=== PATIENT | female | born 1970 | race Caucasian/White ===

== ENCOUNTER → 2019-12-22 | Outpatient (CLI) | payer BC | END | disposition home or self-care (01) | LOC: LAB SHORT 11:59 → LAB 11:59 | DX: N83.8 Other noninflammatory disorders of ovary, fallopian tube and broad ligament (principal) | CPT/HCPCS: 86304 ==

== ENCOUNTER → 2020-01-30 | Outpatient (CLI) | payer BC | END | disposition home or self-care (01) | LOC: PLD 12:44 → LAB SHORT 12:44 | DX: N88.8 Other specified noninflammatory disorders of cervix uteri (principal); R93.89 Abnormal findings on diagnostic imaging of other specified body structures; R19.00 Intra-abdominal and pelvic swelling, mass and lump, unspecified site | CPT/HCPCS: 88305 ==

== ENCOUNTER 2023-11-09 09:41 | Day surgery (SDC) | payer BC ==
[~2023-11-09] VITALS: Ht 162.6 cm; Wt 60.1 kg
[~2023-11-09 09:41] MED LIST: Amlodipine Bes2.5 MG PO; VITAMIN D31000 UNI1 PO
[2023-11-09] MEDS ORDERED: Amoxicillin500 MG PO (10:17)
[2023-11-09 12:12] VITALS: BP 128/81
== END 2023-11-09 12:14 | disposition home or self-care (01) ==
LOC: ORSCSDS 09:41
PROVIDERS: Internal Medicine Gastroenterology
PROC: 0DBN8ZX Excision of Sigmoid Colon, Via Natural or Artificial Opening Endoscopic, Diagnostic (ICD-10-PCS; principal; 2023-11-09 11:00)
DX: Z12.11 Encounter for screening for malignant neoplasm of colon (principal); D12.5 Benign neoplasm of sigmoid colon; I12.9 Hypertensive chronic kidney disease with stage 1 through stage 4 chronic kidney disease, or unspecified chronic kidney disease; N18.2 Chronic kidney disease, stage 2 (mild); Z85.59 Personal history of malignant neoplasm of other urinary tract organ; Z79.899 Other long term (current) drug therapy
CPT/HCPCS: 88305; J2704; J7120